=== PATIENT | male | born 1995 | race Caucasian/White ===

== ENCOUNTER 2024-03-23 14:53 | Outpatient (CLI) | payer BC, SELFPAY | END 2024-03-23 14:54 | disposition home or self-care (01) | LOC: NFLDREF 14:53 | PROVIDERS: Visit Provider Obstetrics & Gynecology | DX: Z31.441 Encounter for testing of male partner of patient with recurrent pregnancy loss (principal); Z31.49 Encounter for other procreative investigation and testing | CPT/HCPCS: 88262 ==

== ENCOUNTER 2024-05-13 00:03 | Outpatient (CLI) | payer BC, SELFPAY | END 2024-05-13 00:04 | disposition home or self-care (01) | LOC: AMB 05-18 21:39 | PROVIDERS: Visit Provider Internal Medicine | DX: K08.89 Other specified disorders of teeth and supporting structures (principal); R11.2 Nausea with vomiting, unspecified; R19.7 Diarrhea, unspecified | CPT/HCPCS: A0425; A0427 ==

== ENCOUNTER 2024-05-13 00:43 | Emergency (ER) | payer BC, SELFPAY ==
--- NOTE | 2024-05-13 00:47 | ED.GENADULT ---
HPI - General Adult General Chief complaint: Nausea/Vomiting Stated complaint: Nausea, vomiting Time Seen by Provider: 05/13/24 00:47 History of Present Illness HPI narrative: Is a 28-year-old gentleman who developed nausea and vomiting at home tonight. He immediately called 911 was brought in by ambulance. He really has no abdominal pain. He did taken amoxicillin earlier today for some mild dental pain that he has been having. He has asthma which is well controlled but no other chronic medical issues. He has had no fevers no chills no night sweats no chest pain no shortness of breath. His symptoms seem to be improving with normal saline given via ambulance. Related Data Home Medications ?Medication ?Instructions ?Recorded ?Confirmed albuterol sulfate 90 mcg/actuation 1 - 2 puff inhalation Q4H PRN 05/13/24 05/13/24 aerosol inhaler wheezing Allergies Allergy/AdvReac Type Severity Reaction Status Date / Time No Known Drug Allergies Allergy Verified 05/13/24 00:53 Review of Systems Status of ROS: Reports: 10 or more systems reviewed and unremarkable except as noted in History and below [facility] Medical History Asthma ?J45.909 - Unspecified asthma, uncomplicated (ICD-10) Social History Smoking Status: Never smoker How often do you have a drink containing alcohol: never AUDIT-C Alcohol total score: 0 Non-prescribed substance use: denies use Exam Narrative: Exam Narrative: EXAM GENERAL: Patient appears comfortable and well. EYES: No scleral icterus. ENT: Tympanic membranes and oropharynx normal. THYROID: no thyroid nodules or thyromegaly. LYMPH: No supraclavicular or cervical lymphadenopathy. SKIN: Visible skin seen during exam normal or with benign process only. EXT: No dependent lower extremity pedal edema. HEART: Regular rate and rhythm with no murmurs, rubs, or gallops. LUNGS: Clear to auscultation bilaterally with no crackles or wheezes. ABD: Soft, non tender, non distended. PSYCH: Good eye contact, speech is not pressured. Const: Vital Signs, click to edit/add: Vital Signs - 24 hr 05/13/24 00:51 Temperature 98.5 F Pulse Rate [Pulse Oximeter] 97 Respiratory Rate 18 Blood Pressure [Ri ght Upper Arm] 125/83 Pulse Oximetry 98 Oxygen Delivery Me thod Room Air Course Course ED Course: patient seen and examined. CBC CMP lipase pending. Normal saline 1 L given 4 mg Zofran given. Vital Signs Vital signs: Initial Vital Signs Temperature 98.5 F 05/13/24 00:51 Temperature Source Temporal Artery Scan 05/13/24 00:51 Pulse Rate 97 05/13/24 00:51 Respiratory Rate 18 05/13/24 00:51 Blood Pressure 125/83 05/13/24 00:51 Blood Pressure Mean 97 05/13/24 00:51 Blood Pressure Position Sitting 05/13/24 00:51 Pulse Oximetry 98 05/13/24 00:51 Oxygen Delivery Method Room Air 05/13/24 00:51 Vital Signs Temperature 98.5 F 05/13/24 00:51 Pulse Rate 97 05/13/24 00:51 Respiratory Rate 18 05/13/24 00:51 Blood Pressure 125/83 05/13/24 00:51 Pulse Oximetry 98 05/13/24 00:51 Oxygen Delivery Method Room Air 05/13/24 00:51 Temperature 98.5 F 05/13/24 00:51 Pulse Rate 97 05/13/24 00:51 Respiratory Rate 18 05/13/24 00:51 Blood Pressure 125/83 05/13/24 00:51 Pulse Oximetry 98 05/13/24 00:51 Oxygen Delivery Method Room Air 05/13/24 00:51 Medications Administered Medications: Generic Name Dose Route Start Last Admin Trade Name Freq PRN Reason Stop Dose Admin Sodium Chloride 1,000 mls @ 1,000 mls/hr 05/13/24 00:50 05/13/24 00:57 0.9 % Sodium Chloride 1000 Ml IV 05/13/24 01:49 1,000 mls/hr .Q1H VICTOR MANUEL Administration Ondansetron HCl 4 mg 05/13/24 00:49 05/13/24 00:57 Ondansetron 2 Mg/Ml Inj IVP 4 mg ONCE PRN Administration Medical Decision Making MDM Narrative Medical decision making narrative: Patient presents with the abrupt onset of nausea and vomiting with resolved with normal saline and Zofran. He is now feeling fine. Does have hemoconcentration on his CBC as well as leukocytosis but no other acute findings. Patient is now feeling much better and would like to go home. Will be discharging home with the oral Zofran advance diet activity as tolerated Tylenol Motrin for discomfort. Differential diagnosis includes gastroenteritis side effect of medication. Lab Data Labs: Lab Results 05/13/24 Range/Units 00:50 WBC 14.47 H (4.50-11.00) K/uL RBC 5.95 H (4.30-5.90) m/uL Hgb 17.9 H (13.5-17.5) gm/dL Hct 51.9 (37.0-53.0) % MCV 87 (80-100) fL MCH 30 (26-34) pg MCHC 35 (32-36) gm/dL RDW Coeff of Jaime 12.3 (11.5-15.5) % Plt Count 247 (140-440) K/uL Neut % (Auto) 87.3 H (42.0-72.0) % Lymph % (Auto) 7.5 L (20-44) % [place] % (Auto) 3.6 (0.0-11.0) % Eos % (Auto) 1.3 (0.0-7.0) % Baso % (Auto) 0.1 (0.0-3.0) % Neut # (Auto) 12.60 H (1.7-7.0) K/uL Lymph # (Auto) 1.10 (0.90-2.90) K/uL [place] # (Auto) 0.50 (0.00-0.90) K/UL Eos # (Auto) 0.20 (0.00-0.50) K/uL Baso # (Auto) 0.00 (0.00-0.30) K/uL Abs Immat Gran (auto) 0.00 (0.00-0.30) K/uL Imm/Tot Granulo (auto) 0.2 % Sodium 140 (135-149) mmol/L Potassium 3.9 (3.6-5.1) mmol/L Chloride 104 (96-114) mmol/L Carbon Dioxide 24 (20-32) mmol/L Anion Gap 12 (7-15) mEq/L BUN 23 (5-24) mg/dL Creatinine 1.1 (0.5-1.5) mg/dL Estimated Creat Clear 117.28 Estimated GFR 94 ml/min Glucose 121 H (60-115) mg/dL Calcium 9.5 (8.4-10.6) mg/dL Total Bilirubin 0.7 (0.1-1.5) mg/dL AST 27 (12-35) U/L ALT 25 (4-50) U/L Alkaline Phosphatase 83 (40-150) U/L Total Protein 7.9 (6.0-8.3) g/dL Albumin 5.0 (3.3-5.0) g/dL Lipase 70 (23-300) U/L Discharge Plan Discharge Clinical Impression: Nausea & vomiting Patient Disposition: Home, Self-Care Condition: Stable Instructions: Acute Nausea and Vomiting (ED) Additional Instructions: Zofran as needed slowly advance diet activity follow-up with your doctor as needed. Activity Level: No Restrictions Discharge Diet: Regular Prescriptions: No Action albuterol sulfate 90 mcg/actuation HFA aerosol inhaler 1 - 2 puff INHALATION Q4H PRN (Reason: wheezing) Follow Up/Referrals: Provider,Not a Local [Primary Care Provider] - Stand Alone Forms: Parents Journey Info Instructions
[2024-05-13 00:51] VITALS: BP 125/83; PULSE 97; RESP 18; TEMP 36.9; O2SAT 98; BMI 30.8
[2024-05-13] MEDS: 0.9 % SODIUM CHLORIDE 1000 ml 1,000 ML IV (00:57)
[2024-05-13] MEDS: ONDANSETRON 2 MG/ML inj 4 MG IVP (00:57)
[2024-05-13 01:10] LABS: Basophils Percent Auto 0.1 % (0.0-3.0); Eosinophils Percent Auto 1.3 % (0.0-7.0); Hematocrit 51.9 % (37.0-53.0); Hemoglobin* 17.9 gm/dL (13.5-17.5); Immature Granulocytes Pct Auto 0.2 %; Lymphocytes Percent Auto 7.5 % (20-44); Mean Corpuscular HGB Conc 35 gm/dL (32-36); Mean Corpuscular Hemoglobin 30 pg (26-34); Mean Corpuscular Volume 87 fL (80-100); Monocytes Percent Auto 3.6 % (0.0-11.0); Neutrophils Percent Auto 87.3 % (42.0-72.0); Platelet Count* 247 K/uL (140-440); RDW Coefficient of Variation % 12.3 % (11.5-15.5); Red Blood Count 5.95 m/uL (4.30-5.90); White Blood Count* 14.47 K/uL (4.50-11.00)
[2024-05-13 01:11] LABS: Slide Review Reflex No
[2024-05-13 01:18] LABS: Chloride* 104 mmol/L (96-114); Potassium* 3.9 mmol/L (3.6-5.1); Sodium* 140 mmol/L (135-149)
[2024-05-13 01:20] LABS: Alkaline Phosphatase* 83 U/L (40-150); Anion Gap 12 mEq/L (7-15); Aspartate Amino Transferase* 27 U/L (12-35); Bilirubin Total* 0.7 mg/dL (0.1-1.5); Carbon Dioxide* 24 mmol/L (20-32); Creatinine* 1.1 mg/dL (0.5-1.5); Est. Creatinine Clearance* 117.28; Estimated Glomerular Filt Rate 94 ml/min; Total Protein* 7.9 g/dL (6.0-8.3)
[2024-05-13 01:21] LABS: Alanine Aminotransferase* 25 U/L (4-50); Blood Urea Nitrogen* 23 mg/dL (5-24); Calcium* 9.5 mg/dL (8.4-10.6); Glucose* 121 mg/dL (60-115); Lipase* 70 U/L (23-300)
[2024-05-13 01:47] VITALS: BP 128/74; PULSE 85; RESP 18; TEMP 36.9; O2SAT 98
== END 2024-05-13 01:47 | disposition home or self-care (01) ==
PROVIDERS: Emergency Provider Internal Medicine
DX: R11.2 Nausea with vomiting, unspecified (principal)
CPT/HCPCS: 36415; 80053; 83690; 85025; 96374; 99283; 99284; J2405; J7030